=== PATIENT | male | born 1970 | race Asian ===

== ENCOUNTER 2019-05-31 12:04 | Emergency (ER) | payer OTHER ==
[~2019-05-31] VITALS: Ht 167.6 cm; Wt 68.0 kg
[2019-05-31] MEDS ORDERED: IOHEXOL 350 MG/ML 100ML IJ ONE (13:39)
[2019-05-31 14:30] VITALS: BP 129/83
[2019-05-31] MEDS ORDERED: KETOROLAC TROMETH 60MG/2ML VIAL IM ONE (16:00)
== END 2019-05-31 16:45 | disposition home or self-care (01) ==
LOC: ER 12:11
DX: S39.012A Strain of muscle, fascia and tendon of lower back, initial encounter (principal); R35.0 Frequency of micturition; R39.15 Urgency of urination; I10 Essential (primary) hypertension; X58.XXXA Exposure to other specified factors, initial encounter; Y93.89 Activity, other specified; Y92.89 Other specified places as the place of occurrence of the external cause; Y99.8 Other external cause status
CPT/HCPCS: 74176; 81002; 96372; 99284; J1885; Q9967